=== PATIENT | male | born 1980 | race Caucasian/White ===

== ENCOUNTER 2017-01-18 15:48 | Emergency (ER) | payer MEDICAID ==
[~2017-01-18] VITALS: Ht 172.7 cm; Wt 81.1 kg
[2017-01-18 17:10] VITALS: BP 117/72
== END 2017-01-18 17:49 | disposition left against medical advice (07) ==
LOC: ER 15:48
DX: M54.9 Dorsalgia, unspecified (principal); Z53.21 Procedure and treatment not carried out due to patient leaving prior to being seen by health care provider